=== PATIENT | male | born 1985 | race Caucasian/White ===

== ENCOUNTER 2016-12-06 20:39 | Emergency (ER) | payer OTHER ==
[~2016-12-06] VITALS: Ht 167.6 cm; Wt 81.6 kg
[~2016-12-06 20:39] MED LIST: Vicodin,Norco 5/325 PO; naprosyn
[2016-12-06] MEDS ORDERED: ULTRAM50 MG PO (22:03)
[2016-12-06 22:20] VITALS: BP 140/87
== END 2016-12-06 22:23 | disposition home or self-care (01) ==
LOC: EME 20:39 → EXP 20:39
DX: S93.402A Sprain of unspecified ligament of left ankle, initial encounter (principal); W17.81XA Fall down embankment (hill), initial encounter
CPT/HCPCS: 73610; 99281; 99284